=== PATIENT | female | born 1930 | race Caucasian/White ===

== ENCOUNTER 2016-12-27 11:17 | Emergency (ER) | payer MEDICARE, BC ==
[~2016-12-27] VITALS: Ht 160 cm; Wt 64.0 kg
[~2016-12-27 11:17] MED LIST: LORA-392 PO; LORT7.5T3 PO; METO25 PO; NORV2.5T11 PO; PRIN20TA2 PO; RANI150 PO; THERA TEARS EACH EYE
[2016-12-27 11:20] VITALS: BP 185/90; PULSE 74; RESP 20; TEMP 97.6; O2SAT 93
--- NOTE | 2016-12-27 12:08 | PD ---
HPI Chief Complaint: Pain: Acute or Chronic Time Seen by Provider: 12:08 Travel History International Travel<30 days: No Contact w/Intl Traveler<30days: No Traveled to known affect area: No History of Present Illness HPI 86-year-old female with history of hypertension presents to the ED for evaluation of "2 or 3 weeks" history of left knee pain. Rated 5/10 with weightbearing. 0/10 at rest. Gradual onset. Located on the anterior medial knee. No history of recent trauma. Accompanied by mild edema of the knee and ankle. She denies numbness, tingling, weakness, limitation to range of motion of the extremity. Denies chest pain, shortness of breath, dyspnea on exertion. Patient endorses similar episodes throughout the course of her life, states that she has been prescribed steroids in the past. Denies a history of arthritis. Never smoked. Denies recent history of immobilization. PFSH Past Medical History Cancer: No Cardiovascular Problems: Yes (HTN) Diabetes: No Glaucoma: No Hepatitis: No Hiatal Hernia: No Hypertension: Yes Thyroid Disease: No ?: Not Past Surgical History Genitourinary Surgery: Yes (BLADDER LIFT) Pacemaker: No Social History Alcohol Use: Yes (OCC WINE) Tobacco Use: No Allergies-Medications (Allergen,Severity, Reaction): Coded Allergies: Penicillin (Verified Allergy, Severe, RASH, 07/12/10) Reported Meds & Prescriptions Reported Meds & Active Scripts Active Ibuprofen 600 Mg Tab 600 Mg PO Q8HR PRN Reported [Thera Tears] 2 Drop EACH EYE TID Review of Systems Except as stated in HPI: all other systems reviewed are Neg Physical Exam Narrative GENERAL: Well-nourished, well-developed elderly white female in no acute distress. SKIN: Warm and dry. HEAD: Normocephalic. EYES: No scleral icterus. No injection or drainage. NECK: Supple, trachea midline. No JVD or lymphadenopathy. CARDIOVASCULAR: Regular rate and rhythm without murmurs, gallops, or rubs. 2+ DP and radial pulses bilaterally. RESPIRATORY: Breath sounds clear and equal bilaterally. No accessory muscle use. GASTROINTESTINAL: Abdomen soft, non-tender, nondistended. MUSCULOSKELETAL: No cyanosis. 1+ pitting edema to the mid abrams bilaterally. Focused left lower extremity exam: Tender to palpation of the anterior medial patella. No patellar balloting. Homans sign negative. No popliteal tenderness or mass. Patient maintains full, active, painless flexion and extension of the knee. Varus/valgus stress test negative. BACK: No obvious deformity. No CVA tenderness. Data Data Last Documented VS Vital Signs Date Time Temp Pulse Resp B/P Pulse Ox O2 Delivery O2 Flow Rate FiO2 12/27/16 11:20 97.6 74 20 185/90 93 Room Air Orders Knee, Complete (4vws) (12/27/16 12:13) Ketorolac Inj (Toradol Inj) (12/27/16 14:15) [facility] Medical Decision Making Medical Screen Exam Complete: Yes Emergency Medical Condition: Yes Differential Diagnosis Osteoarthritis versus meniscal tear versus ligament injury versus less likely septic joint versus less likely DVT versus other Narrative Course 86-year-old female with history of hypertension presents to the ED for evaluation of "2 or 3 weeks" history of left knee pain. Rated 5/10 with weightbearing. 0/10 at rest. Gradual onset. Located on the anterior medial knee. No history of recent trauma. Accompanied by mild edema of the knee and ankle. She denies numbness, tingling, weakness, limitation to range of motion of the extremity. Denies chest pain, shortness of breath, dyspnea on exertion, recent history of immobilization. Vitals reviewed. Physical exam reveals tenderness to palpation along the medial aspect of the patella. No patellar balloting. Homans sign negative. No popliteal tenderness or mass. Patient maintains full, active, painless flexion and extension of the knee. Varus/ valgus stress test negative. Icepack was applied. 15 mg Toradol was administered IM. X-rays reveal osteoarthritis with minimal medial compartment narrowing and a small joint effusion. I discussed the results the x-ray with the patient. She states that she has a orthopedist appointment on the of this month. I encouraged symptomatic treatment and prescribed a short course of anti-inflammatory medications. The patient indicated understanding of the discussion, is amenable to the plan of care. She is stable and discharged home. Diagnosis Primary Impression: Osteoarthritis of left knee Qualified Code: M17.12 - Primary osteoarthritis of left knee Referrals: Orthopedist Patient Instructions: Arthritis (ED), General Instructions, Knee Pain (ED) Additional Instructions: Rest, ice, elevate the extremity. Apply ice no longer than 10-15 minutes per hour a few times a day. Begin taking ibuprofen tomorrow. 600 mg ibuprofen up to 3 times a day as needed for pain. Return to normal, gentle activity as tolerated. No running, jumping activities for the next few weeks. Follow up with orthopedist or your primary care provider. Return to the ED for any urgent or emergent medical condition. Med/Other Pt SpecificInfo: Prescription(s) given Scripts Ibuprofen 600 Mg [id number] Mg PO Q8HR PRN (PAIN) #15 TAB Ref 0 Prov:Leslie Obrien MD 12/27/16 Disposition: 01 DISCHARGE HOME Condition: Stable Sue Garay Dec 27, 2016 12:08
--- NOTE | 2016-12-27 13:58 | RADRPT ---
EXAM DATE/TIME: 12/27/2016 13:22 [facility] COMPARISON: No previous studies available for comparison. INDICATIONS : Left knee pain and swelling with no known injury. MEDICAL HISTORY : None. SURGICAL HISTORY : None. ENCOUNTER: Initial ACUITY: 3 weeks PAIN SCORE: 5/10 LOCATION: Left knee. FINDINGS: 4 views of the left knee. Small tricompartmental osteophytes. Minimal medial compartment narrowing. N o evidence of fracture. Small joint effusion. CONCLUSION: Osteoarthritic findings of minimal medial compartment narrowing. Small joint effusion. Aston Randall MD on December 27, 2016 at 13:56 Board Certified Radiologist. This report was verified electronically.
[2016-12-27] MEDS ORDERED: IBUP-232 PO (14:09)
[2016-12-27] MEDS ORDERED: KETOROLAC TROMETHAMINE 60 MG/2 ML (IM) VIAL IM ONE (14:15)
== END 2016-12-27 14:22 | disposition home or self-care (01) ==
LOC: NETRI 11:17
DX: M17.12 Unilateral primary osteoarthritis, left knee (principal); M25.462 Effusion, left knee; I10 Essential (primary) hypertension
CPT/HCPCS: 73564; 96372; 99283; J1885